=== PATIENT | male | born 1995 | race Caucasian/White ===

== ENCOUNTER 2022-02-23 08:39 | Emergency (ER) | payer OTHER ==
[~2022-02-23] VITALS: Ht 172.7 cm; Wt 77.3 kg
[2022-02-23 09:40] VITALS: BP 124/78
== END 2022-02-23 09:40 | disposition home or self-care (01) ==
LOC: ED 08:39
DX: H10.212 Acute toxic conjunctivitis, left eye (principal); Z28.310 Unvaccinated for COVID-19